=== PATIENT | female | born 1980 | race Caucasian/White ===

== ENCOUNTER 2016-03-01 11:12 | Outpatient (CLI) | payer OTHER | END 2016-03-01 12:16 | disposition home or self-care (01) | LOC: NST SRH 11:12 → OB SRH 11:14 → NST SRH 12:16 | PROC: 4A0HXCZ Measurement of Products of Conception, Cardiac Rate, External Approach (ICD-10-PCS; principal; 2016-03-01) | DX: O24.414 Gestational diabetes mellitus in pregnancy, insulin controlled (principal); O60.03 Preterm labor without delivery, third trimester; Z3A.33 33 weeks gestation of pregnancy ==

== ENCOUNTER 2016-03-21 14:06 | Outpatient (CLI) | payer OTHER | END 2016-03-21 14:45 | disposition home or self-care (01) | LOC: NST SRH 14:06 → OB SRH 14:09 → NST SRH 14:45 | PROC: 4A0HXCZ Measurement of Products of Conception, Cardiac Rate, External Approach (ICD-10-PCS; principal; 2016-03-21) | DX: O24.013 Pre-existing type 1 diabetes mellitus, in pregnancy, third trimester (principal); Z3A.35 35 weeks gestation of pregnancy ==